=== PATIENT | male | born 1965 | race Caucasian/White ===

== ENCOUNTER → 2016-09-04 | Outpatient (CLI) | payer OTHER ==
--- NOTE | ~2016-09-04 | US6 ---
[facility] RADIOLOGY TEXT RESULTS PATIENT: JYOTHI MAN LOCATION: US : 61 UNIT #: [id number] AGE: [address]: GAY ORELLANA APRN SEX: M ORDER DR: [id number] [facility] [address] [place], [place] [address] [id number] O MR#: [id number] #: [id number] NAME: JYOTHI MAN : 1965 SEX: M STUDY DATE/TIME: 09/04/2016 8:54 UNIT: CGUS ROOM: STUDY DESCRIPTION: US Abdominal Limited Attending Physician: Gay Orellana Referring Physician: Gay Orellana Ordering Physician: Gay Orellana A.P.R.N. Primary Care Physician: Timo Weems M.D. MEDICAL IMAGING REPORT This report is preliminary unless electronic signature is present EXAM Right upper quadrant ultrasound 09/04/2016 HISTORY Distended abdomen for 2 years. Hepatitis C of unknown duration. Observation for hepatocellular carcinoma. FINDINGS There is no prior exam for comparison. The liver demonstrates an increase in echotexture with attenuation of the ultrasound beam characteristic of mild fatty infiltration. No cystic or solid mass lesions were seen in the liver. The intra and extrahepatic bile ducts are not dilated. The gallbladder contains a 5 mm gallstone in the gallbladder neck. There is no evidence of gallbladder wall thickening or pericholecystic fluid. Common duct measures 4 mm. The pancreas and right kidney are normal. IMPRESSION 1. Fatty infiltration of the liver. 2. Cholelithiasis. Dictated by... Tien Burnham M.D. THIS IS AN ELECTRONICALLY VERIFIED REPORT Tien Burnham M.D. at 09/05/2016 8:11 AM SARINA/sandi TD: 09/04/2016 12:38 JOB #: [id number] MEDICAL IMAGING REPORT [facility] RADIOLOGY TEXT RESULTS PATIENT: JYOTHI MAN [facility] [birth year] UNIT #: [id number] AGE: [address]: GAY ORELLANA APRN SEX: M ORDER DR: Page 1 of 1 COPY
== END | disposition home or self-care (01) ==
LOC: CGUS 07:30
DX: B19.20 Unspecified viral hepatitis C without hepatic coma (principal); K76.0 Fatty (change of) liver, not elsewhere classified; K80.20 Calculus of gallbladder without cholecystitis without obstruction
CPT/HCPCS: 76705